=== PATIENT | male | born 1950 | race Caucasian/White ===

== ENCOUNTER 2018-12-19 09:04 | Emergency (ER) | payer OTHER ==
[2018-12-19 09:11] VITALS: BMI 23.2
--- NOTE | 2018-12-19 09:16 | PDOC ---
History of Present Illness - General Chief Complaint: Cold Symptoms Stated Complaint: COLD SYMPTOMS Time Seen by Provider: 12/19/18 09:16 History Source: Patient Exam Limitations: No Limitations - History of Present Illness Initial Comments: 68 yo M w a hx of HTN, angioedema, PFO s/p closure, migraines and TIA before pfo closure, presentsa to the ER with a slight fever, chills, sweats, difficulty breathing, and some muscle aches. He states that he originally had a fever on Friday around 100 max 101 which went away and got better after he took tylenol. He was doing well on Fri through Friday until Friday night when his fever came back and he states he felt much worse. He had nonstop chills, could not sleep, and had pleuritic chest pain associated with a non-productive cough. He took tylenol and Guafenison which didn't help him very much. He denies any SOB, headache, weakness, numbness, tingling, chills, blurry vision , dysuria, frequency, urgency, diarrhea, constipation, back pain. abdominal pain , leg pain, recent travel, or rashes. PCP: Dr. Siddiqui Allergies: Grass, Pollen, Wheat PSH: PFO closure Social Hx: Drinks 3 glasses of wine a week recreationally. Denies smoking or other substance usage Meds: Amlodipine, HCTZ, Androgel Past History - Past Medical History Allergies/Adverse Reactions: Allergies Allergy/AdvReac Type Severity Reaction Status Date / Time No Known Allergies Allergy Verified 12/19/18 09:11 Home Medications: Ambulatory Orders Amlodipine Besylate [Norvasc -] 5 mg PO DAILY 12/19/18 Doxycycline Hyclate [Vibramycin -] 100 mg PO BID #14 cap 12/19/18 Hydrochlorothiazide [Hctz -] 25 mg PO DAILY 12/19/18 Oseltamivir Phosphate [Tamiflu] 75 mg PO BID #10 capsule 12/19/18 Testosterone [Androgel] 0.75 gm TD Q48H 12/19/18 COPD: No HTN: Yes - Surgical History Cardiac Surgery: Yes (PFO CLOSURE) - Suicide/Smoking/Psychosocial Hx Smoking History: Never smoked Number of Cigarettes Smoked Daily: 0 Hx Alcohol Use: Yes (SOCIAL) Drug/Substance Use Hx: No Substance Use Type: None Review of Systems - Review of Systems Able to Perform ROS?: Yes Comments:: CONSTITUTIONAL: Present: Fever, chills, fatigue EYES: Absent: visual changes ENT: Absent: ear pain, no sore throat CARDIOVASCULAR: Present: Chest pain Absent: no palpitations RESPIRATORY: Present: Cough Absent: no SOB GI: Absent: abdominal pain, no nausea, no vomiting, no constipation, no diarrhea GENITOURINARY: Absent: dysuria, no frequency, no hematuria MUSKULOSKELETAL: Present: Myalgia Absent: back pain, no arthralgia SKIN: Absent: rash NEURO: Absent: headache *Physical Exam - Vital Signs Last Vital Signs Temp Pulse Resp BP Pulse Ox 100.1 F H 68 16 126/83 95 12/19/18 09:06 12/19/18 09:06 12/19/18 09:06 12/19/18 09:06 12/19/18 09:06 - Physical Exam Comments: GENERAL: Well-appearing, well-nourished. No apparent distress. HEENT: Bilateral posterior SCM adenopathy. No posterior oropharyngeal erythema or exudate. Normocephalic, atraumatic. PERRL, EOM intact. CARDIOVASCULAR: Holosystolic blowing murmur best appreciated in the Right upper sternal border with radiation to the Carotids. Regular rate and rhythm. PULMONARY: No evidence of respiratory distress. Lungs clear to auscultation bilaterally. No wheezing, rales or rhonchi. ABDOMEN: Soft, non-distended, non-tender. EXTREMITIES: Normal ROM in all four extremities. No gross deformities. SKIN: Warm, dry. No rash NEUROLOGICAL: No focal neurological deficits. Moderate Sedation - Procedure Monitoring Vital Signs: Procedure Monitoring Vital Signs Temperature 100.1 F H 12/19/18 09:06 Pulse Rate 68 12/19/18 09:06 Respiratory Rate 16 12/19/18 09:06 Blood Pressure 126/83 12/19/18 09:06 O2 Sat by Pulse Oximetry (%) 95 12/19/18 09:06 Heart Score/ECG Review - ECG Intrepretation Rhythm: PAC(s) - [place] Dover: Normal - ST and T Early Repolarization: No Non Specific ST-T Wave changes: No Flattened T Waves: Yes Prolonged Q-T Interval: No - ECG Impressions Normal ECG: No Non-specific ST Elevation: No Electrolyte Imbalance: Electrolyte Imbalance (hypokalemia) ED Treatment Course - LABORATORY CBC & Chemistry Diagram: 12/19/18 09:40 12/19/18 09:40 Medical Decision Making - Medical Decision Making 68 yo M w a hx of HTN, PFO s/p closure, migraines and TIA before pfo closure, presentsa to the ER with a slight fever, chills, sweats, difficulty breathing, and some muscle aches. He states that he originally had a fever on Friday around 100 max 101 which went away and got better after he took tylenol. He was doing well on Fri through Friday until Friday night when his fever came back and he states he felt much worse. He had nonstop chills, could not sleep, and had pleuritic chest pain associated with a non-productive cough. He took tylenol and Guafenison which didn't help him very much. - VS remarkable for a slightly elevated temperature of 100.1 orally. DDx IBNLT: Influenza, viral URI, other viral illness, post-viral bacterial illness, PNA, myocarditis, pneumothorax Plan: Cbc, Cmp, Ekg, CXR, IV hydration, flu swab, analgesia, re-assess. EKG shows Sinus bradycardia with PAC and a Non-specific T wave abnormality w flattened T's diffusely most prominent in 3 and AVF. Patient has a mildly low potassium of 3.1, possibly a result of taking HCTZ. - Will replete with 40 Meq pill of potassium Cbc remarkable for slight thrombocytopenia CXR shows extra markings in the right base as well as a possible retrocardiac infiltrate. - Will treat as CAP with Doxy. - Patient is Flu swab positive for influenza A. Will treat with Tamiflu *DC/Admit/Observation/Transfer Diagnosis at time of Disposition: Pneumonia, Hypokalemia, Influenza - Discharge Dispostion Disposition: HOME Condition at time of disposition: Stable Decision to Admit order: No - Prescriptions Prescriptions: Doxycycline Hyclate [Vibramycin -] 100 mg PO BID #14 cap Oseltamivir Phosphate [Tamiflu] 75 mg PO BID #10 capsule - Referrals Referrals: Yung Siddiqui [Primary Care Provider] - - Patient Instructions Printed Discharge Instructions: How to Avoid a Cold or Flu, Pneumonia-Adult, DI for Viral Upper Respiratory Infection -- Adult, DI for Hypokalemia Additional Instructions: You came into the ER with a fever, cough, and the chills. We did some blood work , a chest x-ray, a flu swab and an EKG. Your bloodwork showed that your potassium levels are a bit low which can be a result of the HCTZ that you take. We gave you a potassium pill to correct your potassium level. Your chest x-ray showed us that you have a small infection in your lung called pneumonia. We are sending an antibiotic to your pharmacy - doxycycline - for you to take twice a day for the next 7 days. Please make sure to go and cotton picker your antibiotic. The flu swab came back positive for Influenza A. This means you have the Flu. We are treating it with Tamiflu. please make sure to goto your pharmacy and cotton picker this medication as well. Take 75 mg twice a day for the next 5 days. Because you have the Flu it is very important for you not to go near or immunocompromised patients. You should also not goto work for the next 2 days. Drink plenty of fluids, and take ibuprofen/motrin/advil/ or tylenol as needed for pain control. Please make sure to call your primary care doctor and schedule a follow up appointment in the next 3 to 5 days to schedule an appointment, make sure you are being taken care of and getting better. Come back to the ER if your pain worsens, you have a high fever, start vomiting , don't get better, or have any other new or worsening concerns. Thank you for coming to the [facility] ER. We hope you feel better soon! Print Language: ITALIAN - Post Discharge Activity Forms/Work/School Notes: Back to Work
[2018-12-19] MEDS ORDERED: SODIUM CHLORIDE 0.9% 500 ML INFUS.BAG IV ONE (09:22)
[2018-12-19] MEDS ORDERED: IBUPROFEN 600 MG TABLET (FP) PO ONE ×2 (09:34→10:01)
[2018-12-19 10:10] LABS: ALBUMIN 3.7 g/dl (3.4-5.0); ALK PHOS 45 U/L (45-117); ANION GAP 11 MMOL/L (8-16); BASO % 0.5 % (0-2.0); BILIRUBIN,TOTAL 0.9 mg/dl (0.2-1); BLOOD UREA NITROGEN 20 mg/dl (7-18); CALCIUM 8.6 mg/dl (8.5-10); CHLORIDE 100 mmol/L (98-107); CO2 25 mmol/L (21-32); CREATININE 1.1 mg/dl (0.55-1.3); EOS % 0.7 % (0-4.5); GLUCOSE,RANDOM 106 mg/dl (74-106); HEMATOCRIT 45.2 % (35.4-49); HEMOGLOBIN 15.1 GM/dl (11.7-16.9); LYMPH % 7.5 % (8-40); MCH 30.2 pg (25.7-33.7); MCHC 33.4 g/dl (32.0-35.9); MEAN CELL VOLUME 90.5 fl (80-96); MEAN PLT VOLUME 11.6 fl (7.5-11.1); MONO % 6.7 % (3.8-10.2); NEUT % 84.6 % (42.8-82.8); PLATELET COUNT 133 K/MM3 (134-434); POTASSIUM 3.1 mmol/L (3.5-5.1); RBC 4.99 M/mm3 (4.00-5.60); RDW 12.4 % (11.9-15.9); SGOT/AST 27 U/L (15-37); SGPT/ALT 23 U/L (13-61); SODIUM 136 mmol/L (136-145); TOT PROT 6.6 g/dl (6.4-8.2); WHITE BLOOD COUNT 10.1 K/mm3 (4.0-10.8)
[2018-12-19] MEDS ORDERED: POTASSIUM CHLORIDE ORAL LIQUID 20 MEQ/15 ML PO ONE (10:12)
[2018-12-19] MEDS ORDERED: POTASSIUM CHLORIDE TABS 20 MEQ TABLET.ER (FP) PO ONE ×2 (10:17→10:18)
--- NOTE | 2018-12-19 10:29 | PDOC ---
Attending Attestation - Resident Resident Name: Domingo Finney - ED Attending Attestation I have performed the following: I have examined & evaluated the patient, The case was reviewed & discussed with the resident, I agree w/resident's findings & plan - HPI HPI: 12/19/18 10:27 68 YOM with h/o migraines, PFO s/p closure, TIA, HTN Presenting with cold sx, + cough and congestion, initially x 4 days, improved yesterday. Then last night, re-developed fever (Tmax 100-101), returned with myalgias, fever and chills. Associated with substernal chest pain with the coughing. Tylenol and robitussin , with minimal improvement. +sick contacts. No travel. Came to ED because he was concerned for a bacterial infection, with pneumonia after viral illness, last episode 10 years ago. - Physicial Exam PE: 12/19/18 10:27 NAD, well appearing, PERRL, EOMI, MMM, nl conjunctiva, anicteric; normal phonation, neck supple. lungs clear, no respiratory distress, RRR, abdomen soft nontender. CHAVES x4, no focal neuro deficits. No peripheral edema. normal color for ethnicity, WWP. 12/19/18 10:27 - Medical Decision Making 12/19/18 10:28 See HPI for details Vital signs reviewed, normal except for LGF 100.1. no tachy, no respiratory distress or hypoxia Ddx. pneumonia, viral illness, influenza, superimposed infection, electrolyte derangements, metabolic derangements. pleurisy; clinically doubt pericarditis, myocarditis without EKG abnormalities noted or ST segment derangements. doubt angina or ACS, no active CP syncope or SOB. Prior notes reviewed, including admissions, discharges and consultations. laboratory results and imaging reviewed, basic labs and lytes wnl, notable for mild hypokalemia 3.1, repleted orally, able to tolerate. No leukocytosis. CXR_+right retrocardiac vs base prominence, treat as clinical pneumonia EKG normal sinus rhythm HR 59 bpm, no interval abnormalities, narrow QRS, ST and T wave segments and morphology normal. Nonspecific T wave abnormalities; some PACs. ED course: doubt dot or pericarditis, cp with coughing episodes, likely from pna. Well appearing, nontoxic, given NSAID and hydration, LGF here so treated. Oral abx doxycycline for pneumonia coverage. Influenza: positive. given time frame, age, will treat with tamiflu, discussed results with patient and he agrees. will cover for pneumonia as well with doxycycline x 1 week wear masks, supportive care, cover cough, wash hands, temp monitoring. caution with exposures to children, patients and immunocompromised. dispo: Pt to be discharged in stable condition, as his VS are normal and remains well appearing, ambulatory without distress in the ED. Patient and family made aware of impression and plan, return precautions discussed ( including but not limited to worsening pain or symptoms), fevers, or signs of infection, chest pain, respiratory distress, inability to tolerate oral intake, dehydration, syncope, or neurologic changes). Follow up with PMD as recommended , follow up information provided, take medications as instructed for duration of time. continue with supportive care, avoid triggers and precipitants. Patient does not suffer from an acute life-threatening medical condition at this time she is safe for outpatient follow-up. 12/19/18 10:28 12/19/18 11:02 12/19/18 11:10
[2018-12-19 10:53] VITALS: BP 119/67; PULSE 58; TEMP 99.3
[2018-12-19] MEDS ORDERED: OSELTAMIVIR PHOSPHATE 75 MG CAPSULE PO ONE (11:01)
[2018-12-19] MEDS ORDERED: DOXYCYCLINE HYCLATE 100 MG CAPSULE PO ONE ×2 (11:04→11:05)
[2018-12-19] MEDS ORDERED: OSELTAMIVIR PHOSPHATE 75 MG CAPSULE ONE (11:06)
--- NOTE | 2018-12-19 14:43 | EKG ---
Test Reason : Blood Pressure : / mmHG Vent. Rate : 059 BPM Atrial Rate : 059 BPM P-R Int : 186 ms QRS Dur : 100 ms QT Int : 426 ms P-R-T Axes : -10 -08 -29 degrees QTc Int : 421 ms SINUS BRADYCARDIA WITH PREMATURE ATRIAL COMPLEXES NONSPECIFIC T WAVE ABNORMALITY ABNORMAL ECG NO PREVIOUS ECGS AVAILABLE Confirmed by Raciel Mercer MD ([id number]) on 12/19/2018 2:43:11 PM Referred By: GLADIS EASTMAN Confirmed By:Raciel Mercer MD
== END 2018-12-19 11:23 | disposition home or self-care (01) ==
LOC: FER 09:04
PROC: 3E0337Z Introduction of Electrolytic and Water Balance Substance into Peripheral Vein, Percutaneous Approach (ICD-10-PCS; principal; 2018-12-19)
DX: J11.00 Influenza due to unidentified influenza virus with unspecified type of pneumonia (principal); E87.6 Hypokalemia; I10 Essential (primary) hypertension; Z86.73 Personal history of transient ischemic attack (TIA), and cerebral infarction without residual deficits
CPT/HCPCS: 36415; 71046-TC-FY; 80053; 85025; 87804; 93005; 99283-25